=== PATIENT | female | born 1990 | race Caucasian/White ===

== ENCOUNTER 2017-02-09 05:21 | Observation (INO) | payer BC ==
[2017-02-09 05:21] VITALS: BMI 27.4
[2017-02-09 05:39] VITALS: TEMP 97.8
[2017-02-09] MEDS: Sodium Chloride 0.9% 1,000 ML IV SCH ×2 (06:01→08:12)
--- NOTE | 2017-02-09 06:03 | ED PDOC ---
Arrival/HPI - General Chief Complaint: Abdominal Pain Time Seen by Provider: 02/09/17 05:43 Historian: Patient - History of Present Illness Narrative History of Present Illness (Text): 02/09/17 06:00 Agnela Mejia is a 27 year old female who presents to the emergency department complaining of diffused abdominal pain associated with nausea for past hour. Patient also reports of some mid-sternal chest discomfort. Denies any vomiting or diarrhea. Denies fever, chills, headache, dizziness, shortness of breath, back pain, urinary symptoms, or any other complaints at this time. Time/Duration: 1 week Symptom Course: Unchanged Severity Level: Mild Activities at Onset: Light Context: Home Past Medical History - Provider Review Nursing Documentation Reviewed: Yes - Infectious Disease Hx of Infectious Diseases: None - Tetanus Immunization Tetanus Immunization: Unknown - Psychiatric Hx Depression: No Hx Emotional Abuse: No Hx Physical Abuse: No Hx Substance Use: No - Surgical History Hx Appendectomy: Yes - Anesthesia Hx Anesthesia: Yes - Suicidal Assessment Feels Threatened In Home Enviroment: No Family/Social History - Physician Review Nursing Documentation Reviewed: Yes Family/Social History: No Known Family HX Smoking Status: Never Smoked Hx Alcohol Use: No Hx Substance Use: No Hx Substance Use Treatment: No Allergies/Home Meds Allergies/Adverse Reactions: Allergies No Known Allergies Allergy (Verified 02/10/16 17:44) Home Medications: Home Meds Medication Instructions Recorded Confirmed Cholecalciferol (Vitamin D3) 1 tab PO .EVERY OTHER WEEK 02/10/16 02/10/16 [Vitamin D] Norethindrone-E.estradiol-Iron 1 tab PO DAILY 02/10/16 02/10/16 [Microgestin Fe 1-20 Tablet] Review of Systems - Physician Review All systems were reviewed & negative as marked: Yes - Review of Systems Constitutional: Normal. absent: Fatigue, Fevers Respiratory: absent: SOB, Cough, Sputum Cardiovascular: Chest Pain Gastrointestinal: Abdominal Pain, Nausea. absent: Diarrhea, Vomiting Genitourinary Female: Normal. absent: Dysuria, Frequency Neurological: Normal. absent: Headache, Dizziness Physical Exam Vital Signs Reviewed: Yes Vital Signs Temp Pulse Resp BP Pulse Ox 02/09/17 13:06 66 116/75 99 02/09/17 12:26 61 18 108/65 100 02/09/17 10:37 64 18 106/63 100 02/09/17 08:57 69 18 110/68 100 02/09/17 07:22 73 16 109/54 L 100 02/09/17 07:20 58 L 18 108/75 100 02/09/17 05:38 97.8 F 59 L 18 106/71 100 Temperature: Afebrile Blood Pressure: Normal Pulse: Regular Respiratory Rate: Normal Appearance: Positive for: Well-Appearing, Non-Toxic, Comfortable Pain Distress: None Mental Status: Positive for: Alert and Oriented X 3 - Systems Exam Head: Present: Atraumatic, Normocephalic Pupils: Present: PERRL Extroacular Muscles: Present: EOMI Conjunctiva: Present: Normal Mouth: Present: Moist Mucous Membranes Neck: Present: Normal Range of Motion Respiratory/Chest: Present: Clear to Auscultation, Good Air Exchange. No: Respiratory Distress, Accessory Muscle Use Cardiovascular: Present: Regular Rate and Rhythm, Normal S1, S2. No: Murmurs Abdomen: Present: Tenderness (LLQ tenderness ), Normal Bowel Sounds. No: Distention, Peritoneal Signs Back: Present: Normal Inspection Upper Extremity: Present: Normal Inspection. No: Cyanosis, Edema Lower Extremity: Present: Normal Inspection. No: Edema Neurological: Present: GCS=15, CN II-XII Intact, Speech Normal Skin: Present: Warm, Dry, Normal Color. No: Rashes Psychiatric: Present: Alert, Oriented x 3, Normal Insight, Normal Concentration Medical Decision Making ED Course and Treatment: 02/09/17 06:04 Impression: A 27 year old female who presents to the emergency department for evaluation of abdominal pain associated with nausea for past hour. Plan: -- EKG -- Labs -- IV fluids -- Zofran -- Blood culture -- HCG -- Urinalysis -- Reassess and disposition Progress Notes: EKG reviewed by me: Sinus Cheikh @ 60 bpm. Possible left atrial enlargement. - Lab Interpretations Microbiology Results: Microbiology Results 02/09/17 06:40 Blood-Venous Blood Culture - Preliminary NO GROWTH AFTER 48 HOURS 02/09/17 05:55 Blood-Venous Blood Culture - Preliminary NO GROWTH AFTER 48 HOURS Lab Results: 02/09/17 05:55 02/09/17 05:55 Lab Results 02/09/17 06:30: pO2 28 L, VBG pH 7.30 L, VBG pCO2 56.0, VBG HCO3 27.6, VBG Total CO2 29.3 H, VBG O2 Sat (Calc) 53.3, VBG Base Excess 0.1, VBG Potassium 3.6 , Sodium 140.0, Chloride 109.0 H, Glucose 86, Lactate 1.2, FiO2 21.0, Venous Blood Potassium 3.6, Urine Color Dark yellow, Urine Appearance Cloudy, Urine pH 5.5, Ur Specific [place] 1.025, Urine Protein Trace H, Urine Glucose (UA) Negative, Urine Ketones Trace H, Urine Blood Large H, Urine Nitrate Positive H, Urine Bilirubin Moderate H, Urine Urobilinogen 1.0 H, Ur Leukocyte Esterase Negative, Urine RBC 25 - 30, Urine WBC 1 - 3, Ur Epithelial Cells 0 - 2, Urine Bacteria Few, Urine HCG, Qual Negative 02/09/17 05:55: WBC 6.2 D, RBC 4.57, Hgb 14.1, Hct 39.7, MCV 86.9, MCH 30.9, MCHC 35.5, RDW 12.1, Plt Count 197, MPV 11.7 H, Gran % 44.7 L, Lymph % (Auto) 42.8 H, [place] % (Auto) 7.4 H, Eos % (Auto) 4.5, Baso % (Auto) 0.6, Gran # 2.77, Lymph # 2.7, [place] # 0.5, Eos # 0.3, Baso # 0.04, PT 10.8, INR 1.00, APTT 24.0, Sodium 141, Chloride 105, Potassium 3.4 L, Carbon Dioxide 27, Anion Gap 12, BUN 5 L, Creatinine 0.6, Est GFR ( Amer) > 60, Est GFR (Non-Af Amer) > 60, Random Glucose 81, Calcium 9.2, Total Bilirubin 0.7, AST 29, ALT 12, Alkaline Phosphatase 61, Total Protein 7.4, Albumin 3.9, Globulin 3.5, Albumin/Globulin Ratio 1.1, Lipase 67 I have reviewed the lab results: Yes - RAD Interpretation Radiology Orders: 02/09/17 06:44 TRANSVAGINAL [US] Stat - EKG Interpretation Interpreted by ED Physician: Yes Type: 12 lead EKG - Medication Orders Current Medication Orders: Discontinued Medications Sodium Chloride (Sodium Chloride 0.9%) 1,000 mls @ 1,000 mls/hr IV .Q1H COUNTS INCLUDE 234 BEDS AT THE [facility] Last Admin: 02/09/17 08:12 Dose: 1,000 MLS/HR eMAR Start Stop Document 02/09/17 08:12 DATA CENTER ENGINEER (Rec: 02/09/17 08:12 DATA CENTER ENGINEER [id number]) Intravenous Solution Start Date 02/09/17 Start Time 08:12 End Date 02/09/17 End time 09:12 Total Infusion Time 60 Sodium Chloride (Sodium Chloride 0.9%) 1,000 mls @ 100 mls/hr IV .Q10H COUNTS INCLUDE 234 BEDS AT THE [facility] Last Admin: 02/09/17 10:51 Dose: 100 MLS/HR eMAR Start Stop Document 02/09/17 10:51 MMA (Rec: 02/09/17 10:51 MMA [id number]) Intravenous Solution Start Date 02/09/17 Start Time 10:51 End Date 02/09/17 Ketorolac Tromethamine (Toradol) 30 mg IVP ONCE ONE Stop: 02/09/17 08:02 Last Admin: 02/09/17 08:17 Dose: 30 MG IVP Administration Document 02/09/17 08:17 MMA (Rec: 02/09/17 08:17 MMA [id number]) Charges for Administration # of IVP Administrations 1 Morphine Sulfate (Morphine) 2 mg IVP STAT STA Stop: 02/09/17 08:02 Last Admin: 02/09/17 08:17 Dose: 2 MG MAR Pain Assessment Document 02/09/17 08:17 MMA (Rec: 02/09/17 08:18 MMA [id number]) Pain Reassessment Is this a pain reassessment? No Sleep Is patient sleeping during reassessment? No Presence of Pain Presence of Pain Yes Pain Scale Used Pain Scale Used Numeric Location Left, Right or Bilateral Bilateral Upper or Lower Lower Pain Location Body Site Abdomen Description Description Constant Intensity of Pain at present 10 Pain Behavior Moaning Guarding IVP Administration Document 02/09/17 08:17 MMA (Rec: 02/09/17 08:18 MMA [id number]) Charges for Administration # of IVP Administrations 1 Ondansetron HCl (Zofran Inj) 4 mg IVP STAT STA Stop: 02/09/17 05:50 Last Admin: 02/09/17 06:01 Dose: 4 MG IVP Administration Document 02/09/17 06:01 RD (Rec: 02/09/17 06:01 RD [id number]) Charges for Administration # of IVP Administrations 1 Potassium Chloride (K-Dur 20 Meq Er Tab) 20 meq PO ONCE ONE Stop: 02/09/17 12:49 Last Admin: 02/09/17 13:18 Dose: 20 MEQ - Transfer of Care Patient signed out to Dr:: trino Campos Statement The provider has reviewed the documentation as recorded by the Beth Fuentes Provider Attestation: All medical record entries made by the Beth were at my direction and personally dictated by me. I have reviewed the chart and agree that the record accurately reflects my personal performance of the history, physical exam, medical decision making, and the department course for this patient. I have also personally directed, reviewed, and agree with the discharge instructions and disposition. Disposition/Present on Arrival - Present on Arrival Any Indicators Present on Arrival: No History of DVT/PE: No History of Uncontrolled Diabetes: No Urinary Catheter: No History of Decub. Ulcer: No History Surgical Site Infection Following: None - Disposition Have Diagnosis and Disposition been Completed?: Yes Diagnosis: Abdominal pain Disposition: HOME/ ROUTINE Disposition Time: 07:00 Condition: GOOD
[2017-02-09 06:20] LABS: ADD MANUAL DIFF? NO
[2017-02-09 06:26] LABS: BASO # 0.04 K/mm3 (0.0-2.0); BASO % 0.6 % (0.0-3.0); EOS # 0.3 (0.0-0.7); EOS % 4.5 % (1.5-5.0); GRAN # 2.77 (1.4-6.5); GRAN % 44.7 % (50.0-68.0); HEMATOCRIT 39.7 % (36.0-48.0); LYMPH # 2.7 (1.2-3.4); LYMPH % 42.8 % (22.0-35.0); MEAN CELL VOLUME 86.9 fL (80.0-105.0); MEAN CORPUSCULAR HEMOGLOBIN 30.9 pg (25.0-35.0); MEAN CORPUSCULAR HGB CONC 35.5 g/dl (31.0-37.0); MEAN PLATELET VOLUME 11.7 fl (7.0-11.0); MONO # 0.5 (0.1-0.6); MONO % 7.4 % (1.0-6.0); PLATELET COUNT 197 10^3/uL (120.0-450.0); RED CELL DISTRIBUTION WIDTH 12.1 % (11.5-14.5); WHITE BLOOD COUNT 6.2 10^3/ul (4.5-11.0)
[2017-02-09 06:39] LABS: ALB/GLOB RATIO 1.1 (1.1-1.8); ALKALINE PHOSPHATASE 61 U/L (38-133); ALT/SGPT 12 U/L (7-56); AST/SGOT 29 U/L (15-39); BILIRUBIN,TOTAL 0.7 mg/dL (0.2-1.3); BLOOD UREA NITROGEN 5 mg/dL (7-21); CALCIUM 9.2 mg/dL (8.4-10.5); CARBON DIOXIDE 27 mmol/L (21-33); CHLORIDE 105 mmol/L (98-107); GFR AFRICAN-AMERICAN > 60; GLUCOSE,RANDOM 81 mg/dL (70-110); LIPASE 67 U/L (23-300); POTASSIUM 3.4 mmol/L (3.6-5.0); SODIUM 141 mmol/L (132-148); TOTAL PROTEIN 7.4 g/dL (5.8-8.3)
[2017-02-09 06:48] LABS: VENOUS BLOOD GAS BASE EXCESS 0.1 mmol/L (0.0-2.0)
[2017-02-09 07:00] LABS: URINE APPEARANCE CLOUDY (CLEAR); URINE COLOR DARK YELLOW (YELLOW)
[2017-02-09 07:01] LABS: PH,URINE 5.5 (4.7-8.0); URINE BILIRUBIN MODERATE (NEGATIVE); URINE BLOOD LARGE (NEGATIVE); URINE GLUCOSE (UA) NEGATIVE (NEGATIVE); URINE KETONE TRACE mg/dL (NEGATIVE); URINE LEUKOCYTE ESTERASE NEGATIVE Leu/uL (NEGATIVE); URINE PROTEIN TRACE mg/dL (<30 mg/dL)
[2017-02-09 07:07] LABS: URINE BACTERIA FEW (NEG); URINE EPITHELIAL CELLS 0 - 2 /hpf (0-5); URINE RBC 25 - 30 /hpf (0-2)
--- NOTE | 2017-02-09 07:45 | US ---
HISTORY: llq pain COMPARISON: None available. TECHNIQUE: Transabdominal and transvaginal FINDINGS: UTERUS: Measures 7.6 x 3.8 x 4.9 cm. Normal in size and appearance. No fibroid or other mass lesion seen. ENDOMETRIUM: Measures 3 mm in diameter. Unremarkable. CERVIX: No cervical abnormality identified. RIGHT OVARY: Measures 3.1 x 2.2 x 2.7 cm. No solid mass. Normal flow. LEFT OVARY: Measures 2.9 x 2.2 x 2.3 cm. No solid mass. Normal flow. FREE FLUID: Minimal free fluid in cul-de-sac OTHER FINDINGS: None. IMPRESSION: Minimal free fluid in cul-de-sac. The remainder of the examination is unremarkable.
[2017-02-09] MEDS ORDERED: Morphine 2 mg/ml ISec IVP STA (08:01)
[2017-02-09] MEDS ORDERED: Sodium Chloride 0.9% 1,000 ML IV SCH (08:15)
[2017-02-09 08:58] VITALS: RESP 18
--- NOTE | 2017-02-09 08:58 | CT ---
PROCEDURE: CT Abdomen and Pelvis without intravenous contrast HISTORY: severe abdominal pain with hematuria COMPARISON: None. TECHNIQUE: Without contrast. Contrast Dose: Radiation dose: Total exam DLP = 476 mGy-cm. This CT exam was performed using one or more of the following dose reduction techniques: Automated exposure control, adjustment of the mA and/or kV according to patient size, and/or use of iterative reconstruction technique. FINDINGS: LOWER THORAX: Unremarkable. LIVER: Unremarkable. No gross lesion or ductal dilatation. GALLBLADDER AND BILE DUCTS: Unremarkable. PANCREAS: Unremarkable. No gross lesion or ductal dilatation. SPLEEN: Unremarkable. ADRENALS: Unremarkable. No mass. KIDNEYS AND URETERS: Unremarkable. No hydronephrosis. No solid mass. There is a 2 mm nonobstructing stone in the right kidney VASCULATURE: Unremarkable. No aortic aneurysm. BOWEL: Unremarkable. No obstruction. No gross mural thickening. APPENDIX: Unremarkable. Normal appendix. PERITONEUM: Unremarkable. No free fluid. No free air. LYMPH NODES: Unremarkable. No enlarged lymph nodes. BLADDER: Unremarkable. REPRODUCTIVE: Unremarkable. BONES: No acute fracture. OTHER FINDINGS: None. IMPRESSION: No acute intra-abdominal findings. No evidence of ureteral stone
--- NOTE | 2017-02-09 09:07 | ED PDOC ---
Physical Exam Vital Signs Reviewed: Yes Vital Signs Temp Pulse Resp BP Pulse Ox 02/09/17 12:26 61 18 108/65 100 02/09/17 10:37 64 18 106/63 100 02/09/17 08:57 69 18 110/68 100 02/09/17 07:22 73 16 109/54 L 100 02/09/17 07:20 58 L 18 108/75 100 02/09/17 05:38 97.8 F 59 L 18 106/71 100 Temperature: Afebrile Blood Pressure: Normal Pulse: Regular Respiratory Rate: Normal Appearance: Positive for: Well-Appearing, Non-Toxic, Comfortable Pain Distress: None Mental Status: Positive for: Alert and Oriented X 3 Medical Decision Making - Lab Interpretations Lab Results: 02/09/17 05:55 02/09/17 05:55 Lab Results 02/09/17 06:30: pO2 28 L, VBG pH 7.30 L, VBG pCO2 56.0, VBG HCO3 27.6, VBG Total CO2 29.3 H, VBG O2 Sat (Calc) 53.3, VBG Base Excess 0.1, VBG Potassium 3.6 , Sodium 140.0, Chloride 109.0 H, Glucose 86, Lactate 1.2, FiO2 21.0, Venous Blood Potassium 3.6, Urine Color Dark yellow, Urine Appearance Cloudy, Urine pH 5.5, Ur Specific [place] 1.025, Urine Protein Trace H, Urine Glucose (UA) Negative, Urine Ketones Trace H, Urine Blood Large H, Urine Nitrate Positive H, Urine Bilirubin Moderate H, Urine Urobilinogen 1.0 H, Ur Leukocyte Esterase Negative, Urine RBC 25 - 30, Urine WBC 1 - 3, Ur Epithelial Cells 0 - 2, Urine Bacteria Few, Urine HCG, Qual Negative 02/09/17 05:55: WBC 6.2 D, RBC 4.57, Hgb 14.1, Hct 39.7, MCV 86.9, MCH 30.9, MCHC 35.5, RDW 12.1, Plt Count 197, MPV 11.7 H, Gran % 44.7 L, Lymph % (Auto) 42.8 H, [place] % (Auto) 7.4 H, Eos % (Auto) 4.5, Baso % (Auto) 0.6, Gran # 2.77, Lymph # 2.7, [place] # 0.5, Eos # 0.3, Baso # 0.04, PT 10.8, INR 1.00, APTT 24.0, Sodium 141, Chloride 105, Potassium 3.4 L, Carbon Dioxide 27, Anion Gap 12, BUN 5 L, Creatinine 0.6, Est GFR ( Amer) > 60, Est GFR (Non-Af Amer) > 60, Random Glucose 81, Calcium 9.2, Total Bilirubin 0.7, AST 29, ALT 12, Alkaline Phosphatase 61, Total Protein 7.4, Albumin 3.9, Globulin 3.5, Albumin/Globulin Ratio 1.1, Lipase 67 I have reviewed the lab results: Yes - RAD Interpretation Radiology Orders: 02/09/17 06:44 TRANSVAGINAL [US] Stat - Medication Orders Current Medication Orders: Sodium Chloride (Sodium Chloride 0.9%) 1,000 mls @ 1,000 mls/hr IV .Q1H [facility] Last Admin: 02/09/17 08:12 Dose: 1,000 MLS/HR eMAR Start Stop Document 02/09/17 08:12 ABSTRACTOR (Rec: 02/09/17 08:12 [facility] [id number]) Intravenous Solution Start Date 02/09/17 Start Time 08:12 End Date 02/09/17 End time 09:12 Total Infusion Time 60 Sodium Chloride (Sodium Chloride 0.9%) 1,000 mls @ 100 mls/hr IV .Q10H [facility] Last Admin: 02/09/17 10:51 Dose: 100 MLS/HR eMAR Start Stop Document 02/09/17 10:51 MMA (Rec: 02/09/17 10:51 MMA [id number]) Intravenous Solution Start Date 02/09/17 Start Time 10:51 End Date 02/09/17 Discontinued Medications Ketorolac Tromethamine (Toradol) 30 mg IVP ONCE ONE Stop: 02/09/17 08:02 Last Admin: 02/09/17 08:17 Dose: 30 MG IVP Administration Document 02/09/17 08:17 MMA (Rec: 02/09/17 08:17 MMA [id number]) Charges for Administration # of IVP Administrations 1 Morphine Sulfate (Morphine) 2 mg IVP STAT STA Stop: 02/09/17 08:02 Last Admin: 02/09/17 08:17 Dose: 2 MG MAR Pain Assessment Document 02/09/17 08:17 MMA (Rec: 02/09/17 08:18 [id number] Pain Reassessment Is this a pain reassessment? No Sleep Is patient sleeping during reassessment? No Presence of Pain Presence of Pain Yes Pain Scale Used Pain Scale Used Numeric Location Left, Right or Bilateral Bilateral Upper or Lower Lower Pain Location Body Site Abdomen Description Description Constant Intensity of Pain at present 10 Pain Behavior Moaning Guarding IVP Administration Document 02/09/17 08:17 MMA (Rec: 02/09/17 08:18 [id number] Charges for Administration # of IVP Administrations 1 Ondansetron HCl (Zofran Inj) 4 mg IVP STAT STA Stop: 02/09/17 05:50 Last Admin: 02/09/17 06:01 Dose: 4 MG IVP Administration Document 02/09/17 06:01 RD (Rec: 02/09/17 06:01 RD [id number]) Charges for Administration # of IVP Administrations 1 Potassium Chloride (K-Dur 20 Meq Er Tab) 20 meq PO ONCE ONE Stop: 02/09/17 12:49 ED OBSERVATION Discharge: Yes Date of observation admission: 02/09/17 Time of observation admission: 07:00 - Observation admission statement Patient is being placed in observation because:: abdominal pain - Goals of Observation Goals of observation are:: pain management and obtain series of abdominal examination - Progress Note Progress Note: 02/09/17 07:00 Case signed out to me from overnight by Dr. Dixon, pending labs, imaging, reevaluation and disposition. The patient is a 27 year old female who came to the emergency department earlier today complaining of diffuse abdominal pain which is associated with nausea. Patient also noted some mid-sternal chest discomfort. 02/09/17 07:45 Transvaginal Ultrasound: Creator : Adrian Jane MD COMPARISON: None available. FINDINGS: UTERUS: Measures 7.6 x 3.8 x 4.9 cm. Normal in size and appearance. No fibroid or other mass lesion seen. ENDOMETRIUM: Measures 3 mm in diameter. Unremarkable. CERVIX: No cervical abnormality identified. RIGHT OVARY: Measures 3.1 x 2.2 x 2.7 cm. No solid mass. Normal flow. LEFT OVARY: Measures 2.9 x 2.2 x 2.3 cm. No solid mass. Normal flow. FREE FLUID: Minimal free fluid in cul-de-sac OTHER FINDINGS: None. IMPRESSION: Minimal free fluid in cul-de-sac. The remainder of the examination is unremarkable. 02/09/17 08:00 On reevaluation, the patient has returned from ultrasound and still complains of serve diffuse abdominal pain. IV morphine and Toradol ordered, after allergies reviewed. Abdomen/Pelvis CT without contrast ordered to assess for possible renal colic. 02/09/17 09:00 Abdomen/Pelvis CT: Creator : Kartik Power MD COMPARISON: None. FINDINGS: LOWER THORAX: Unremarkable. LIVER: Unremarkable. No gross lesion or ductal dilatation. GALLBLADDER AND BILE DUCTS: Unremarkable. PANCREAS: Unremarkable. No gross lesion or ductal dilatation. SPLEEN: Unremarkable. ADRENALS: Unremarkable. No mass. KIDNEYS AND URETERS: Unremarkable. No hydronephrosis. No solid mass. There is a 2 mm nonobstructing stone in the right kidney VASCULATURE: Unremarkable. No aortic aneurysm. BOWEL: Unremarkable. No obstruction. No gross mural thickening. APPENDIX: Unremarkable. Normal appendix. PERITONEUM: Unremarkable. No free fluid. No free air. LYMPH NODES: Unremarkable. No enlarged lymph nodes. BLADDER: Unremarkable. REPRODUCTIVE: Unremarkable. BONES: No acute fracture. OTHER FINDINGS: None. IMPRESSION: No acute intra-abdominal findings. No evidence of ureteral stone 02/09/17 10:37 On reevaluation, patient vitals remain stable. 02/09/17 12:48 On reevaluation, patient notes significant improvement in pain. CT scan and Ultrasound report reviewed with patient and family, as well as it's limitations. Patient and family express understanding. Patient and family in agreement with plan to discharged home. Patient is stable for discharge. Patient and family were instructed to follow up with OBGYN or return if symptoms worsen or new concerning symptoms arise. - Scribe Statement The provider has reviewed the documentation as recorded by the Beth Marcial Provider Scribe Attestation: All medical record entries made by the Scribe were at my direction and personally dictated by me. I have reviewed the chart and agree that the record accurately reflects my personal performance of the history, physical exam, medical decision making, and the department course for this patient. I have also personally directed, reviewed, and agree with the discharge instructions and disposition. Disposition/Present on Arrival - Present on Arrival Any Indicators Present on Arrival: No History of DVT/PE: No History of Uncontrolled Diabetes: No Urinary Catheter: No History of Decub. Ulcer: No History Surgical Site Infection Following: None - Disposition Have Diagnosis and Disposition been Completed?: Yes Diagnosis: Abdominal pain Disposition: HOME/ ROUTINE Disposition Time: 12:48 Patient Problems: Current Active Problems Problem Status Diagnosed Abdominal pain Acute Condition: GOOD
[2017-02-09] MEDS ORDERED: Potassium Chloride 20 mEq ER Tab PO ONE (12:48)
[2017-02-09 13:07] VITALS: BP 116/75; PULSE 66; O2SAT 99
--- NOTE | 2017-02-09 18:31 | CARD ---
APPROVED REPORT EKG Measurement Heart [id number] NE [id number] <Conclusion> Sinus bradycardia Possible Left atrial enlargement Borderline ECG
== END 2017-02-09 12:55 | disposition home or self-care (01) ==
LOC: ED 05:21 → EROBSV 07:05
PROVIDERS: ADMIT Emergency Medicine; ATTEND Emergency Medicine
DX: R10.84 Generalized abdominal pain (principal)
CPT/HCPCS: 74176; 76830; 80053; 81001; 82803; 83690; 84703; 85025; 85610; 85730; 87040; 87086; 93005; 96361; 96374; 96375; 99285; G0378; J1885; J2270; J2405; J7040

== ENCOUNTER 2017-02-23 01:49 | Emergency (ER) | payer BC ==
[2017-02-23 02:00] VITALS: BMI 25.6
[2017-02-23] MEDS ORDERED: Sucralfate 1 gm/10 ml Oral Susp UD PO STA (02:02)
[2017-02-23 02:03] VITALS: BP 125/70; PULSE 124; RESP 20; O2SAT 100
--- NOTE | 2017-02-23 02:37 | ED PDOC ---
Arrival/HPI - General Chief Complaint: Allergic Reaction Time Seen by Provider: 02/23/17 01:51 Historian: Patient - History of Present Illness Narrative History of Present Illness (Text): 02/23/17 02:32 Angela Mejia is a 27 year old female who presents to the emergency department complaining of foreign body sensation to throat. States that she feels like something is stuck in the throat but denies any difficulty swallowing fluids. States that symptoms presented after taking Flagyl about 20 minutes prior to arrival. States that she felt throat discomfort after starting on Flagyl 4 days ago, but states that symptoms worsened tonight. Denies any fever, chills, chest pain, shortness of breath, urinary symptoms, or any other complaints at this time. Time/Duration: 1-3 hours Symptom Onset: Gradual Symptom Course: Worsening Severity Level: Mild Activities at Onset: Light Context: Home Past Medical History - Provider Review Nursing Documentation Reviewed: Yes - Infectious Disease Hx of Infectious Diseases: None - Tetanus Immunization Tetanus Immunization: Unknown - Psychiatric Hx Depression: No Hx Emotional Abuse: No Hx Physical Abuse: No Hx Substance Use: No - Surgical History Hx Appendectomy: Yes - Anesthesia Hx Anesthesia: Yes - Suicidal Assessment Feels Threatened In Home Enviroment: No Family/Social History - Physician Review Nursing Documentation Reviewed: Yes Family/Social History: No Known Family HX Smoking Status: Never Smoked Hx Alcohol Use: No Hx Substance Use: No Hx Substance Use Treatment: No Allergies/Home Meds Allergies/Adverse Reactions: Allergies No Known Allergies Allergy (Verified 02/23/17 02:06) Home Medications: Home Meds Medication Instructions Recorded Confirmed Cholecalciferol (Vitamin D3) 1 tab PO .EVERY OTHER WEEK 02/10/16 02/23/17 [Vitamin D] Metronidazole [Flagyl] 500 mg PO BID 02/23/17 02/23/17 Review of Systems - Physician Review All systems were reviewed & negative as marked: Yes - Review of Systems Constitutional: Normal. absent: Fatigue, Fevers ENT: Other (foreign body sensation to throat ) Respiratory: Normal. absent: SOB, Cough Cardiovascular: Normal. absent: Chest Pain Gastrointestinal: Normal. absent: Abdominal Pain, Diarrhea, Nausea, Vomiting Neurological: Normal. absent: Headache, Dizziness Psychiatric: Anxiety Physical Exam Vital Signs Reviewed: Yes Vital Signs Pulse Resp BP Pulse Ox 02/23/17 02:03 124 H 20 125/70 100 Temperature: Afebrile Blood Pressure: Normal Pulse: Tachycardic Respiratory Rate: Normal Appearance: Positive for: Well-Appearing, Non-Toxic, Comfortable Pain Distress: None Mental Status: Positive for: Alert and Oriented X 3 - Systems Exam Head: Present: Atraumatic, Normocephalic Pupils: Present: PERRL Conjunctiva: Present: Normal Pharnyx: Present: Normal. No: ERYTHEMA, EXUDATE, TONSILS ENLARGED Respiratory/Chest: Present: Clear to Auscultation, Good Air Exchange. No: Respiratory Distress, Accessory Muscle Use Cardiovascular: Present: Regular Rate and Rhythm, Normal S1, S2. No: Murmurs Abdomen: Present: Normal Bowel Sounds. No: Tenderness, Distention, Peritoneal Signs Upper Extremity: Present: Normal Inspection. No: Cyanosis, Edema Lower Extremity: Present: Normal Inspection. No: Edema Neurological: Present: GCS=15, CN II-XII Intact, Speech Normal, Motor Func Grossly Intact, Normal Sensory Function Skin: Present: Warm, Dry, Normal Color. No: Rashes Psychiatric: Present: Alert, Oriented x 3, Normal Insight, Normal Concentration Medical Decision Making ED Course and Treatment: 02/23/17 02:39 Impression: A 27 year old female who presents to the emergency department complaining of foreign body sensation to the throat. Plan: -- CT neck -- Ativan -- Carafate Progress Notes: 02/23/17 05:56 CT neck results reviewed: IMPRESSION: No acute pathology, as detailed above. On reevaluation patient states that she feels much better and wants to be discharged home. Patient is stable for discharge. Advised to present to ed for worsening symptoms and follow up with PMD within few days. Re-evaluation Time: 05:33 Reassessment Condition: Re-examined, Improved - Lab Interpretations Lab Results: 02/23/17 03:05 02/23/17 03:05 Lab Results 02/23/17 03:05: WBC 8.4 D, RBC 4.26, Hgb 12.9, Hct 37.1, MCV 87.1, MCH 30.3, MCHC 34.8, RDW 12.5, Plt Count 199, MPV 12.7 H, Gran % 50.2, Lymph % (Auto) 39.7 H, [place] % (Auto) 6.7 H, Eos % (Auto) 2.9, Baso % (Auto) 0.5, Gran # 4.24, Lymph # 3.3, [place] # 0.6, Eos # 0.2, Baso # 0.04, Sodium 136, Potassium 3.0 L, Chloride 101, Carbon Dioxide 24, Anion Gap 14, BUN 10, Creatinine 0.7, Est GFR ( Amer) > 60, Est GFR (Non-Af Amer) > 60, Random Glucose 141 H, Calcium 9.4, Total Bilirubin 0.5, AST 29, ALT 28, Alkaline Phosphatase 56, Total Protein 7.6, Albumin 4.2, Globulin 3.4, Albumin/Globulin Ratio 1.2 02/23/17 02:06: Urine HCG, Qual Negative I have reviewed the lab results: Yes - RAD Interpretation Narrative RAD Interpretations (Text): EXAM: CT Neck Without Intravenous Contrast FINDINGS: Nasopharynx: Unremarkable. Oropharynx: Limited by streak artifact from the patient's dentition. Hypopharynx: Symmetric Larynx: Normal epiglottis. Trachea: Patent. Retropharyngeal space: Unremarkable. Submandibular/parotid glands: Glands are normal in size. Thyroid: No enlarged or calcified nodules. Bones/joints: No acute fracture. Soft tissues: Largely symmetric. Vasculature: No acute findings. Lymph nodes: No pathologically enlarged lymph nodes (by size criteria). IMPRESSION: No acute pathology, as detailed above. Radiology Orders: 02/23/17 03:15 NECK & CHEST W/O CONTRAST [CT] Stat Sheet Layer: Radiologist - Medication Orders Current Medication Orders: Discontinued Medications Lorazepam (Ativan) 0.5 mg IVP ONCE ONE PRN Reason: Protocol Stop: 02/23/17 02:02 Last Admin: 02/23/17 02:20 Dose: 0.5 MG Behavioural Document 02/23/17 02:20 [facility] (Rec: 02/23/17 02:20 [facility] [id number]) Maintenance Maintenance Dose No Nonmedicinal Nonmedicinal Interventions Redirect Therapeutic Communication Behavior Behavior for Medication: Anxiety IVP Administration Document 02/23/17 02:20 [facility] (Rec: 02/23/17 02:20 [facility] [id number]) Charges for Administration # of IVP Administrations 1 Sucralfate (Carafate Oral Susp) 1 gm PO STAT STA Stop: 02/23/17 02:03 Last Admin: 04/18/17 02:20 Dose: 1 GM - Scribe Statement The provider has reviewed the documentation as recorded by the Beth Fuentes Provider Attestation: All medical record entries made by the Beth were at my direction and personally dictated by me. I have reviewed the chart and agree that the record accurately reflects my personal performance of the history, physical exam, medical decision making, and the department course for this patient. I have also personally directed, reviewed, and agree with the discharge instructions and disposition. Disposition/Present on Arrival - Present on Arrival Any Indicators Present on Arrival: No History of DVT/PE: No History of Uncontrolled Diabetes: No Urinary Catheter: No History of Decub. Ulcer: No History Surgical Site Infection Following: None - Disposition Have Diagnosis and Disposition been Completed?: Yes Diagnosis: Gastroesophageal reflux disease Disposition: HOME/ ROUTINE Disposition Time: 05:34 Condition: GOOD Discharge Instructions (ExitCare): Gastroesophageal Reflux Disease (ED) Prescriptions: Sucralfate [Carafate] 1 gm PO QID #200 ml
[2017-02-23 03:39] LABS: ADD MANUAL DIFF? NO
[2017-02-23 03:59] LABS: WHITE BLOOD COUNT 8.4 10^3/ul (4.5-11.0)
[2017-02-23 04:00] LABS: GRAN % 50.2 % (50.0-68.0); HEMATOCRIT 37.1 % (36.0-48.0); LYMPH % 39.7 % (22.0-35.0); MEAN CELL VOLUME 87.1 fL (80.0-105.0); MEAN CORPUSCULAR HEMOGLOBIN 30.3 pg (25.0-35.0); MEAN CORPUSCULAR HGB CONC 34.8 g/dl (31.0-37.0); MEAN PLATELET VOLUME 12.7 fl (7.0-11.0); MONO % 6.7 % (1.0-6.0); PLATELET COUNT 199 10^3/uL (120.0-450.0); RED CELL DISTRIBUTION WIDTH 12.5 % (11.5-14.5)
[2017-02-23 04:01] LABS: EOS % 2.9 % (1.5-5.0)
[2017-02-23 04:02] LABS: BASO # 0.04 K/mm3 (0.0-2.0); BASO % 0.5 % (0.0-3.0); EOS # 0.2 (0.0-0.7); GRAN # 4.24 (1.4-6.5); LYMPH # 3.3 (1.2-3.4); MONO # 0.6 (0.1-0.6)
[2017-02-23 04:05] LABS: ALB/GLOB RATIO 1.2 (1.1-1.8); ALKALINE PHOSPHATASE 56 U/L (38-133); ALT/SGPT 28 U/L (7-56); AST/SGOT 29 U/L (15-39); BILIRUBIN,TOTAL 0.5 mg/dL (0.2-1.3); BLOOD UREA NITROGEN 10 mg/dL (7-21); CALCIUM 9.4 mg/dL (8.4-10.5); CARBON DIOXIDE 24 mmol/L (21-33); CHLORIDE 101 mmol/L (98-107); GFR AFRICAN-AMERICAN > 60; GLUCOSE,RANDOM 141 mg/dL (70-110); SODIUM 136 mmol/L (132-148); TOTAL PROTEIN 7.6 g/dL (5.8-8.3)
--- NOTE | 2017-02-23 09:35 | CT ---
PROCEDURE: CT Neck, Chest, without contrast HISTORY: dysphagia COMPARISON: None. TECHNIQUE: Contrast dose: Radiation dose: Total exam DLP = 296 mGy-cm. This CT exam was performed using one or more of the following dose reduction techniques: Automated exposure control, adjustment of the mA and/or kV according to patient size, and/or use of iterative reconstruction technique. FINDINGS: CT OF THE NECK: PHARYNX: Nasopharynx: Unremarkable. Oropharnx: Unremarkable. Hypopharynx: Unremarkable. LYMPH NODES: Unremarkable. VASCULATURE: Unremarkable. GLANDS: Unremarkable. CERVICAL SPINE: Unremarkable. CT OF THE CHEST: LUNGS: Clear lungs. Visualized airway clear. MEDIASTINUM: Unremarkable thoracic aorta. No aneurysm or dissection. Normal sized heart. Pulmonary arterial truck unremarkable. No vascular congestion. No lymphadenopathy. PLEURA: No pleural fluid. No pneumothorax. BONES: No fracture. No destructive lesion. The report concurs with the preliminary [facility] report IMPRESSION: No acute pathology
== END 2017-02-23 05:36 | disposition home or self-care (01) ==
LOC: ED 01:49
DX: K21.9 Gastro-esophageal reflux disease without esophagitis (principal)
CPT/HCPCS: 70490; 71250; 80053; 84703; 85025; 96374; 99283; J2060

== ENCOUNTER 2017-07-14 16:58 | Emergency (ER) | payer BC, OTHER ==
[2017-07-14 16:58] VITALS: BMI 25.6
[2017-07-14 17:09] VITALS: TEMP 98.1
[2017-07-14] MEDS ORDERED: Sodium Chloride 0.9% 1,000 ML IV STA (17:48)
[2017-07-14 18:25] LABS: URINE BILIRUBIN NEGATIVE (NEGATIVE); URINE BLOOD NEGATIVE (NEGATIVE); URINE GLUCOSE (UA) NEGATIVE (NEGATIVE); URINE KETONE NEGATIVE (NEGATIVE); URINE LEUKOCYTE ESTERASE NEGATIVE Leu/uL (NEGATIVE); URINE PROTEIN NEGATIVE mg/dL (<30 mg/dL)
[2017-07-14 18:26] LABS: BASO # 0.05 K/mm3 (0.0-2.0); BASO % 0.8 % (0.0-3.0); EOS # 0.2 (0.0-0.7); EOS % 3.2 % (1.5-5.0); GRAN # 3.65 (1.4-6.5); GRAN % 56.1 % (50.0-68.0); HEMATOCRIT 37.9 % (36.0-48.0); LYMPH # 2.1 (1.2-3.4); LYMPH % 31.6 % (22.0-35.0); MEAN CELL VOLUME 87.7 fl (80.0-105.0); MEAN CORPUSCULAR HEMOGLOBIN 30.6 pg (25.0-35.0); MEAN CORPUSCULAR HGB CONC 34.8 g/dl (31.0-37.0); MEAN PLATELET VOLUME 10.8 fl (7.0-11.0); MONO # 0.5 (0.1-0.6); MONO % 8.3 % (1.0-6.0); WHITE BLOOD COUNT 6.5 10^3/ul (4.5-11.0)
[2017-07-14 18:26] LABS: URINE APPEARANCE CLEAR (CLEAR); URINE COLOR YELLOW (YELLOW)
[2017-07-14 18:36] LABS: ALB/GLOB RATIO 1.3 (1.1-1.8); ALKALINE PHOSPHATASE 49 U/L (38-126); ALT/SGPT 20 U/L (7-56); AST/SGOT 29 U/L (14-36); BLOOD UREA NITROGEN 8 mg/dL (7-21); CALCIUM 9.4 mg/dL (8.4-10.5); CARBON DIOXIDE 25 mmol/L (21-33); CHLORIDE 105 mmol/L (98-107); GFR AFRICAN-AMERICAN > 60; GLUCOSE,RANDOM 90 mg/dL (70-110); SODIUM 139 mmol/L (132-148); TOTAL PROTEIN 7.2 g/dL (5.8-8.3)
[2017-07-14 18:49] LABS: TROPONIN I < 0.01 ng/mL
[2017-07-14 19:40] VITALS: BP 99/61; PULSE 67; RESP 16; O2SAT 100
[2017-07-14 19:41] LABS: INR 1.1 (0.93-1.08); PARTIAL THROMBOPLASTIN TIME 27.5 Seconds (23.7-30.8)
--- NOTE | 2017-07-14 20:54 | CT ---
EXAM: CT Head Without Intravenous Contrast EXAM DATE/TIME: 07/14/2017 7:00 PM CLINICAL HISTORY: The patient age is 27 years old and is female; Signs and symptoms; Syncope and collapse Facility exam id and description: Ct heads head w/o contrast TECHNIQUE: Axial computed tomography images of the head/brain without intravenous contrast. All CT scans at this facility use one or more dose reduction techniques, viz.: automated exposure control; ma/kV adjustment per patient size (including targeted exams where dose is matched to indication; i.e. head); or iterative reconstruction technique. COMPARISON: No relevant prior studies available. FINDINGS: Brain: The white-kemp differentiation is preserved demonstrating no acute territorial type infarct. No acute intracranial hemorrhage is seen. No edema. Midline shift: There is no midline shift. Ventricles: No ventriculomegaly. Bones/joints: The calvarium demonstrates no evidence for a depressed fracture. Soft tissues: Within the left superior scalp, there is a small hyperdense calcification or foreign body. There is no significant soft tissue swelling in this region. Sinuses: Unremarkable as visualized. No acute sinusitis. Mastoid air cells: No mastoid effusion. IMPRESSION: 1. No acute intracranial abnormality. 2. Within the left superior scalp, there is a small hyperdense calcification or foreign body.
--- NOTE | 2017-07-14 20:55 | ED PDOC ---
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 Patient reports waking this afternoon, states that she was in her kitchen preparing food and talking to her on the cell phone when she felt like she was about to pass out, told her of her symptoms, who then called the ambulance and his family to check on her in the house. As per patient, the ambulance found her wake on the floor, her family arrived and found her on the ambulance stretcher. Patient reports feeling well otherwise and c/o L sided headache, pain to the L cheek, and L knee. Patient has no other symptoms. Patient's states that the patient slept over 12 hours yesterday after working 3 12 hour days and had nothing to eat all day. Otherwise: (-) lightheadedness, (-) trauma, (-) other injury, (-) tinnitus, (-) hearing loss, ( -) recent illness, (-) recent travel, (-) chest pain, (-) dyspnea, (-) fever, (- ) abdominal pain, (-) vomiting, (-) diarrhea, (-) urinary symptoms, (-) GI bleeding. LMP 2 weeks ago PMD Tess Past Medical History - Infectious Disease Hx of Infectious Diseases: None - Tetanus Immunization Tetanus Immunization: Unknown - Reproductive Menopause: No - Psychiatric Hx Depression: No Hx Emotional Abuse: No Hx Physical Abuse: No Hx Substance Use: No - Surgical History Hx Appendectomy: Yes - Anesthesia Hx Anesthesia: Yes - Suicidal Assessment Feels Threatened In Home Enviroment: No Family/Social History - Physician Review Nursing Documentation Reviewed: Yes Family/Social History: Diabetes, Hypertension Smoking Status: Never Smoked Hx Alcohol Use: No Hx Substance Use: No Hx Substance Use Treatment: No Allergies/Home Meds Allergies/Adverse Reactions: Allergies No Known Allergies Allergy (Verified 07/14/17 17:15) Home Medications: Home Meds Medication Instructions Recorded Confirmed No Known Home Med 07/14/17 07/14/17 Review of Systems - Review of Systems Constitutional: Normal. absent: Fatigue, Weight Change, Fevers Respiratory: Normal. absent: SOB, Cough, Sputum Cardiovascular: Normal. absent: Chest Pain, Palpitations, Edema Musculoskeletal: Normal. absent: Arthralgias, Back Pain, Neck Pain Skin: Normal. absent: Rash, Pruritis, Skin Lesions Neurological: Normal, Dizziness. absent: Headache, Focal Weakness Physical Exam - Physical Exam Narrative Physical Exam (Text): 07/14/17 21:11 GENERAL APPEARANCE: Patient is awake, alert, oriented x 3, in no acute distress. SKIN: Warm, dry; (-) cyanosis. HEAD: (-) scalp swelling or tenderness. (+) Tiny <0.5 cm palpable non-tender circular mass to the L parietal scalp. EYES: (-) conjunctival pallor. ENMT: TMs normal. Mucous membranes dry. NECK: (-) tenderness, (-) stiffness, (-) lymphadenopathy. Carotids: (-) bruit. CHEST AND RESPIRATORY: (-) rales, (-) rhonchi, (-) wheezes; breath sounds equal bilaterally. HEART AND CARDIOVASCULAR: (-) irregularity; (-) murmur, (-) gallop. ABDOMEN AND GI: Soft; (-) distention, (-) tenderness, (-) rebound, (-) guarding , (-) palpable masses, (-) flank tenderness. EXTREMITIES: (-) deformity; (-) edema. Distal pulses: present. NEURO AND PSYCH: Mental status as above. 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 Strength and DTRs symmetric. 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 Patient reports waking this afternoon, states that she was in her kitchen preparing food and talking to her on the cell phone when she felt like she was about to pass out. Plan: -- Labs -- IV fluids -- Urinalysis -- EKG -- CXR -- Tylenol -- Reassess and disposition -- CT head Uhcg (-) FS 127 EKG : NSR at 69 bpm, normal axis, (-) acute ST chnages, as read by PA CXR : NAD, as read by PA Labs reviewed and are wnl. On re-evaluation, pt is resting comfortably in bed in no acute distress, with no other complaints at this time. VSS. PE is unchanged. Lab, EKG and CXR results d/w the pt and her . CT head is pending still. 07/14/17 20:59 D-dimer (-). CT Head w/o contrast: IMPRESSION: 1. No acute intracranial abnormality. 2. Within the left superior scalp, there is a small hyperdense calcification or foreign body. Orthostatics : lying bp 100/57 p 68 sitting bp 92/61 p 64 standing bp 93/64 p 86 On reevaluation, patient remains awake, alert and oriented x3 in no acute distress. VSS. Patient has no complaints at this time. Reports no headache, dizziness, CP, or SOB. On exam, lungs clear, cardiac RRR, repeat neuro exam is unchanged. Patient is tolerating juice and crackers. Patient advised to follow up with primary care physician in 1-2 days without fail. Return to the emergency room at any time for any new or worsening symptoms. Patient states she fully agrees with and understands discharge instructions. States that she agrees with the plan and disposition. Verbalized and repeated discharge instructions and plan. I have given the patient opportunity to ask any additional questions. - Lab Interpretations Lab Results: 07/14/17 18:10 07/14/17 18:10 Lab Results 07/14/17 19:00: D-Dimer, Quantitative 0.24 07/14/17 19:00: PT 11.9 H, INR 1.10 H, APTT 27.5 07/14/17 18:10: Sodium 139, Potassium 4.0, Chloride 105, Carbon Dioxide 25, Anion Gap 13, BUN 8, Creatinine 0.5, Est GFR ( Amer) > 60, Est GFR (Non- Af Amer) > 60, Random Glucose 90, Calcium 9.4, Total Bilirubin 1.0, AST 29, ALT 20, Alkaline Phosphatase 49, Lactate Dehydrogenase 515, Total Creatine Kinase 53 , Troponin I < 0.01, Total Protein 7.2, Albumin 4.1, Globulin 3.1, Albumin/ Globulin Ratio 1.3 07/14/17 18:10: WBC 6.5 D, RBC 4.32, Hgb 13.2, Hct 37.9, MCV 87.7, MCH 30.6, MCHC 34.8, RDW 12.0, Plt Count 213, MPV 10.8, Gran % 56.1, Lymph % (Auto) 31.6, [place] % (Auto) 8.3 H, Eos % (Auto) 3.2, Baso % (Auto) 0.8, Gran # 3.65, Lymph # 2.1, [place] # 0.5, Eos # 0.2, Baso # 0.05 07/14/17 18:05: Urine Color Yellow, Urine Appearance Clear, Urine pH 7.0, Ur Specific [place] 1.015, Urine Protein Negative, Urine Glucose (UA) Negative, Urine Ketones Negative, Urine Blood Negative, Urine Nitrate Negative, Urine Bilirubin Negative, Urine Urobilinogen 1.0 H, Ur Leukocyte Esterase Negative - RAD Interpretation Narrative RAD Interpretations (Text): 07/14/17 20:59 CT Head w/o contrast: FINDINGS: Brain: The white-kemp differentiation is preserved demonstrating no acute territorial type infarct. No acute intracranial hemorrhage is seen. No edema. Midline shift: There is no midline shift. Ventricles: No ventriculomegaly. Bones/joints: The calvarium demonstrates no evidence for a depressed fracture. Soft tissues: Within the left superior scalp, there is a small hyperdense calcification or foreign body. There is no significant soft tissue swelling in this region. Sinuses: Unremarkable as visualized. No acute sinusitis. Mastoid air cells: No mastoid effusion. IMPRESSION: 1. No acute intracranial abnormality. 2. Within the left superior scalp, there is a small hyperdense calcification or foreign body. 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 Disposition/Present on Arrival - Present on Arrival Any Indicators Present on Arrival: No History of DVT/PE: No History of Uncontrolled Diabetes: No Urinary Catheter: No History of Decub. Ulcer: No History Surgical Site Infection Following: None - Disposition Have Diagnosis and Disposition been Completed?: Yes Diagnosis: Syncope Disposition: HOME/ ROUTINE Disposition Time: 21:00 Patient Plan: Discharge Condition: STABLE Discharge Instructions (ExitCare): Syncope (ED) Print Language: MICRONESIAN Additional Instructions: Thank you for letting us take care of you today. You were treated for syncope. The emergency medical care you received today was directed at your acute symptoms. Return to the Emergency Department if your symptoms worsen, do not improve, or if you have any other problems. Please contact your doctor in 2 days for re-evaluation and follow up. Bring any paperwork you were given at discharge with you along with any medications you are taking to your follow up visit. Our treatment cannot replace ongoing medical care by a primary care provider (PCP) outside of the emergency department. Thank you for allowing the [facility] team to be part of your care today. Referrals: Tess PATEL,Terry Pena MD [Primary Care Provider] - Follow up with primary Forms: FOBO (Kinyarwanda), WORK NOTE
--- NOTE | 2017-07-15 08:24 | RAD ---
HISTORY: syncope COMPARISON: No prior. FINDINGS: LUNGS: No active pulmonary disease. PLEURA: No significant pleural effusion identified, no pneumothorax apparent. CARDIOVASCULAR: Normal. OSSEOUS STRUCTURES: No significant abnormalities. VISUALIZED UPPER ABDOMEN: Normal. OTHER FINDINGS: None. IMPRESSION: No active disease.
--- NOTE | 2017-07-15 13:49 | CARD ---
APPROVED REPORT EKG Measurement Heart [id number] CT [id number] <Conclusion> Normal sinus rhythm with sinus arrhythmia Possible Left atrial enlargement Borderline ECG
== END 2017-07-14 21:37 | disposition home or self-care (01) ==
LOC: ED 16:58
DX: R55 Syncope and collapse (principal)
CPT/HCPCS: 70450; 71010; 80053; 81003; 82550; 83615; 84484; 85025; 85378; 85610; 85730; 93005; 99285; J7040

== ENCOUNTER 2017-08-09 14:29 | Emergency (ER) | payer OTHER ==
[2017-08-09 14:52] VITALS: BMI 26.5
[2017-08-09 14:53] VITALS: RESP 18; TEMP 98; O2SAT 100
[2017-08-09] MEDS ORDERED: Emtricitabine-Tenofovir 200 mg-300 mg Tab PO STA (15:28)
--- NOTE | 2017-08-09 15:42 | ED PDOC ---
Arrival/HPI - General Chief Complaint: Needle Stick Time Seen by Provider: 08/09/17 14:59 - History of Present Illness Narrative History of Present Illness (Text): 08/09/17 15:39 27yo female presents after being stuck with a needle while giving a flu shot. Pt denies any PMHx. States she does not know hx of pt. No other complaints. Was stuck in L. 2nd digit. States she cleaned with alcohol. Past Medical History - Provider Review Nursing Documentation Reviewed: Yes - Infectious Disease Hx of Infectious Diseases: None - Tetanus Immunization Tetanus Immunization: Unknown - Cardiac Hx Hypotension: Yes - Psychiatric Hx Depression: No Hx Emotional Abuse: No Hx Physical Abuse: No Hx Substance Use: No - Surgical History Hx Appendectomy: Yes - Anesthesia Hx Anesthesia: Yes Hx Anesthesia Reactions: No Hx Malignant Hyperthermia: No - Suicidal Assessment Feels Threatened In Home Enviroment: No Family/Social History Family/Social History: Unknown Family HX Smoking Status: Never Smoked Hx Alcohol Use: No Hx Substance Use: No Hx Substance Use Treatment: No Allergies/Home Meds Allergies/Adverse Reactions: Allergies No Known Allergies Allergy (Verified 07/14/17 17:15) Review of Systems - Physician Review All systems were reviewed & negative as marked: Yes - Review of Systems Skin: Other (needlestick) Physical Exam Vital Signs Reviewed: Yes Vital Signs Temp Pulse Resp BP Pulse Ox 08/09/17 14:52 98.0 F 67 18 112/73 100 Temperature: Afebrile Blood Pressure: Normal Pulse: Regular Respiratory Rate: Normal Appearance: Positive for: Well-Appearing Pain Distress: None Mental Status: Positive for: Alert and Oriented X 3 - Systems Exam Head: Present: Atraumatic, Normocephalic Pupils: Present: PERRL Extroacular Muscles: Present: EOMI Conjunctiva: Present: Normal Mouth: Present: Moist Mucous Membranes Neck: Present: Normal Range of Motion Respiratory/Chest: Present: Clear to Auscultation, Good Air Exchange. No: Respiratory Distress, Accessory Muscle Use Cardiovascular: Present: Regular Rate and Rhythm, Normal S1, S2. No: Murmurs Abdomen: Present: Normal Bowel Sounds. No: Tenderness, Distention, Peritoneal Signs Back: Present: Normal Inspection Upper Extremity: Present: Normal Inspection. No: Cyanosis, Edema Lower Extremity: Present: Normal Inspection. No: Edema Neurological: Present: GCS=15, Other (no focal neurological deficits) Skin: Present: Warm, Dry, Normal Color, Other (L. 2nd digit with a small puncture wound. distal neurovasc. intact). No: Rashes Psychiatric: Present: Alert, Oriented x 3, Normal Insight, Normal Concentration Medical Decision Making ED Course and Treatment: 08/09/17 15:[address] Abreu [place], states to give truvada and raltegravir, and to provide 4 weeks course had a long dw pt and about side effects of meds, as well as chances of disease transmission rates pt asked for the medication spoke with pts primary physician Dr. Pulido, states to admin meds as well and he will follow her outpatient pt understands to f/u with med. records for her results as well Pt states she understands to return to the ER right away for new or worsening symptoms or for inability to f/u with PMD or specialist as instructed. Patient states that she fully agrees with and understands discharge instructions. States that she agrees with the plan and disposition. Verbalized and repeated discharge instructions and plan. I have given the patient opportunity to ask any additional questions. - Medication Orders Current Medication Orders: Emtricitabine/Tenofovir (Truvada 200 Mg-300 Mg) 1 tab PO DAILY STA Stop: 08/09/17 15:29 Raltegravir (Isentress) 400 mg PO BID STA Stop: 08/09/17 15:29 Disposition/Present on Arrival - Present on Arrival Any Indicators Present on Arrival: No History of DVT/PE: No History of Uncontrolled Diabetes: No Urinary Catheter: No History of Decub. Ulcer: No History Surgical Site Infection Following: None - Disposition Have Diagnosis and Disposition been Completed?: Yes Diagnosis: Needle stick injury of finger Disposition: HOME/ ROUTINE Disposition Time: 15:45 Patient Plan: Discharge Patient Problems: Current Active Problems Problem Status Onset Needle stick injury of finger Acute Condition: GOOD Discharge Instructions (ExitCare): Needle Stick Injuries (ED) Additional Instructions: PLEASE FOLLOW UP WITH MEDICAL RECORDS FOR YOUR RESULTS PLEASE RETURN TO THE EMERGENCY DEPARTMENT FOR NEW OR WORSENING SYMPTOMS. RETURN RIGHT AWAY IF YOU CANNOT FOLLOW UP WITH YOUR PRIMARY CARE DOCTOR, CLINIC, OR SPECIALIST IN 1-2 DAYS. Prescriptions: Emtricitabine/Tenofovir (Tdf) [Truvada 200 mg-300 mg Tablet] 1 each PO DAILY # 28 tablet Raltegravir Potassium [Isentress] 400 mg PO BID #56 tab Referrals: Tess PATEL,Terry Pena MD [Primary Care Provider] - Follow up with primary Jorge Abreu MD [Staff Provider] - Follow up with primary Forms: HERMEL DELOR (Maldivian), WORK NOTE
[2017-08-09] MEDS ORDERED: TDAP Vaccine 0.5 mL Syr IM ONE (15:51)
[2017-08-09 19:36] VITALS: BP 108/65; PULSE 78
== END 2017-08-09 16:35 | disposition home or self-care (01) ==
LOC: ED 14:29
DX: S69.92XA Unspecified injury of left wrist, hand and finger(s), initial encounter (principal); W46.0XXA Contact with hypodermic needle, initial encounter; Z23 Encounter for immunization